=== PATIENT | female | born 1980 | race Caucasian/White ===

== ENCOUNTER 2018-08-05 01:01 | Inpatient (IN) | payer OTHER, MEDICAID ==
[~2018-08-05] VITALS: Ht 162.6 cm; Wt 139.7 kg
[2018-08-05 01:41] LABS: BASOPHIL % 0.7 % (0-2); PLATELET COUNT 227 x10^3mcL (130-400); RED CELL DISTRIBUTION WIDTH 12.9 % (11.5-14.5)
[2018-08-05 01:52] LABS: CALCIUM 8.9 mg/dL (8.5-10.1); CHLORIDE SERUM 99 mmol/L (98-107); GFR1 > 60 mL/min; GLUCOSE SERUM 271 mg/dL (74-106); POTASSIUM SERUM 4.3 mmol/L (3.5-5.1); SODIUM SERUM 135 mmol/L (136-145)
[2018-08-05 01:57] LABS: ALBUMIN 3.6 g/dL (3.4-5.0); ALKALINE PHOSPHATASE 129 U/L (46-116); ALT/SGPT 99 U/L (14-59); AST/SGOT 92 U/L (15-37); BILIRUBIN TOTAL 0.29 mg/dL (0.20-1.00); TOTAL PROTEIN, SERUM 7.9 g/dL (6.4-8.2)
[2018-08-05 02:37] LABS: AMPHETAMINE QUAL UR NONE DETECTED (See below)
[2018-08-05] MEDS ORDERED: CLONAZEPAM1 MG PO (05:45)
[2018-08-05] MEDS ORDERED: LYRICA50 M1 PO (05:45)
[2018-08-05 05:53] LABS: CALCIUM 8.4 mg/dL (8.5-10.1); CARBON DIOXIDE 23.3 mmol/L (21-32); CHLORIDE SERUM 102 mmol/L (98-107); GFR1 > 60 mL/min; GLUCOSE SERUM 320 mg/dL (74-106); POTASSIUM SERUM 4.1 mmol/L (3.5-5.1); SODIUM SERUM 138 mmol/L (136-145)
[2018-08-05 05:58] LABS: ALKALINE PHOSPHATASE 131 U/L (46-116); ALT/SGPT 113 U/L (14-59); AST/SGOT 138 U/L (15-37); BILIRUBIN TOTAL 0.25 mg/dL (0.20-1.00); TOTAL PROTEIN, SERUM 7.4 g/dL (6.4-8.2)
[2018-08-05 06:01] LABS: ALBUMIN 3.3 g/dL (3.4-5.0)
[2018-08-05 07:17] LABS: T3 TOTAL 0.75 ng/mL
[2018-08-05 07:18] LABS: CHOLESTEROL/HDL RATIO 5.3
[2018-08-05 07:25] LABS: FREE T4 0.96 ng/dL (0.76-1.46); FREE THYROXINE INDEX 2.2 ug/dL (1.4-4.5); T4(THYROXINE) 7.3 ug/dL (4.7-13.3)
[2018-08-05 07:52] VITALS: BP 131/79
[2018-08-05 08:03] VITALS: Ht 162.6 cm; Wt 139.7 kg
[2018-08-05 11:15] VITALS: BP 145/82
[2018-08-05 12:18] LABS: ALT/SGPT 110 U/L (14-59); AST/SGOT 80 U/L (15-37)
[2018-08-05 15:05] VITALS: BP 122/72
[2018-08-05 20:01] VITALS: BP 124/82
[2018-08-05 22:08] LABS: ALT/SGPT 103 U/L (14-59); AST/SGOT 98 U/L (15-37)
[2018-08-06 05:56] VITALS: BP 107/60
[2018-08-06 08:15] LABS: BASOPHIL % 0.6 % (0-2); PLATELET COUNT 196 x10^3mcL (130-400); RED CELL DISTRIBUTION WIDTH 12.9 % (11.5-14.5)
[2018-08-06 08:16] LABS: CARBON DIOXIDE 29.4 mmol/L (21-32); CHLORIDE SERUM 107 mmol/L (98-107); CREATININE SERUM 0.7 mg/dL (0.6-1.0); GFR1 > 60 mL/min; GLUCOSE SERUM 221 mg/dL (74-106); POTASSIUM SERUM 4.6 mmol/L (3.5-5.1); SODIUM SERUM 143 mmol/L (136-145)
[2018-08-06 08:18] VITALS: BP 139/88
[2018-08-06 08:26] LABS: ALT/SGPT 90 U/L (14-59); AST/SGOT 79 U/L (15-37)
[2018-08-06 17:25] VITALS: BP 144/87
[2018-08-06 20:16] VITALS: BP 141/72
[2018-08-07 05:59] VITALS: BP 97/58
[2018-08-07] MEDS ORDERED: SYNTHROID0.088 MG PO (08:58)
[2018-08-07] MEDS ORDERED: CYMBALTA30 M1 PO (09:00)
[2018-08-07 18:28] VITALS: BP 135/74
[2018-08-07 20:03] VITALS: BP 137/72
[2018-08-08 04:50] LABS: microscopic required? NO
[2018-08-08 04:57] LABS: urine erythrocyte NEGATIVE (NEGATIVE)
[2018-08-08 06:29] LABS: CALCIUM 8.9 mg/dL (8.5-10.1); CARBON DIOXIDE 30.1 mmol/L (21-32); CHLORIDE SERUM 104 mmol/L (98-107); CREATININE SERUM 0.7 mg/dL (0.6-1.0); GFR1 > 60 mL/min; GLUCOSE SERUM 188 mg/dL (74-106); POTASSIUM SERUM 3.9 mmol/L (3.5-5.1); SODIUM SERUM 141 mmol/L (136-145)
[2018-08-08 07:32] LABS: BASOPHIL % 0.8 % (0-2); PLATELET COUNT 200 x10^3mcL (130-400)
== END 2018-08-08 14:24 | disposition left against medical advice (07) | DRG 885 ==
LOC: ED 01:01 → MU 05:50 → IC 05:50 → DU 19:44 → MU 20:00
PROVIDERS: Emergency Medicine; Family Medicine; ADMIT Internal Medicine
DX: F31.30 Bipolar disorder, current episode depressed, mild or moderate severity, unspecified (principal); G92 Toxic encephalopathy; E44.1 Mild protein-calorie malnutrition; R45.851 Suicidal ideations; F60.3 Borderline personality disorder; T39.1X2A Poisoning by 4-Aminophenol derivatives, intentional self-harm, initial encounter; T42.6X2A Poisoning by other antiepileptic and sedative-hypnotic drugs, intentional self-harm, initial encounter; T42.4X2A Poisoning by benzodiazepines, intentional self-harm, initial encounter; E11.65 Type 2 diabetes mellitus with hyperglycemia; L80 Vitiligo; R74.0 Nonspecific elevation of levels of transaminase and lactic acid dehydrogenase [LDH]; Y92.018 Other place in single-family (private) house as the place of occurrence of the external cause; Z98.84 Bariatric surgery status; Z91.5 Personal history of self-harm; Z68.33 Body mass index [BMI] 33.0-33.9, adult
CPT/HCPCS: 82962; 83880; 84439; G0480; J0132; J7030

== ENCOUNTER 2018-09-01 23:51 | Emergency (ER) | payer OTHER, MEDICAID ==
[~2018-09-01] VITALS: Ht 162.6 cm; Wt 141.5 kg
[~2018-09-01 23:51] MED LIST: CLONAZEPAM1 MG PO; CYMBALTA30 M1 PO; LYRICA50 M1 PO; SYNTHROID0.088 MG PO
[2018-09-02 00:03] VITALS: Ht 162.6 cm; Wt 141.5 kg
[2018-09-02 01:22] LABS: CALCIUM 9.1 mg/dL (8.5-10.1); CARBON DIOXIDE 28.8 mmol/L (21-32); CHLORIDE SERUM 103 mmol/L (98-107); CREATININE SERUM 0.9 mg/dL (0.6-1.0); GFR1 > 60 mL/min; GLUCOSE SERUM 345 mg/dL (74-106); POTASSIUM SERUM 3.9 mmol/L (3.5-5.1); SODIUM SERUM 138 mmol/L (136-145)
[2018-09-02 01:24] LABS: BASOPHIL % 0.5 % (0-2); PLATELET COUNT 205 x10^3mcL (130-400); RED CELL DISTRIBUTION WIDTH 12.6 % (11.5-14.5)
[2018-09-02 01:30] LABS: ALKALINE PHOSPHATASE 119 U/L (46-116); ALT/SGPT 58 U/L (14-59); AST/SGOT 36 U/L (15-37); BILIRUBIN TOTAL 0.17 mg/dL (0.20-1.00); LIPASE 315 IU/L (73-393); TOTAL PROTEIN, SERUM 7.2 g/dL (6.4-8.2)
[2018-09-02 01:53] LABS: ALBUMIN 3.1 g/dL (3.4-5.0)
[2018-09-02 03:23] VITALS: BP 141/77
== END 2018-09-02 03:23 | disposition home or self-care (01) ==
LOC: ED 23:51
PROVIDERS: Emergency Medicine
DX: M54.5 Low back pain (principal); R10.31 Right lower quadrant pain; I10 Essential (primary) hypertension; E11.9 Type 2 diabetes mellitus without complications; F41.9 Anxiety disorder, unspecified; Z90.49 Acquired absence of other specified parts of digestive tract; Z98.84 Bariatric surgery status
CPT/HCPCS: 82962; J1885; J2405; J7030